=== PATIENT | male | born 1980 | race Caucasian/White ===

== ENCOUNTER 2021-02-12 22:35 | Emergency (ER) | payer SELFPAY ==
[~2021-02-12] VITALS: Ht 187.9 cm; Wt 104.3 kg
[2021-02-12] MEDS ORDERED: LIDOCAINE 1% INJ 20 ML 20 ML VIAL INJ ONE (22:45)
[2021-02-12] MEDS ORDERED: TETANUS,DIPTH,PERTUSS P/F (BOOSTRIX) 0.5 ML VIAL IM ONE (22:45)
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
--- NOTE | 2021-02-12 23:57 | Diagnostic Imaging Report ---
PROCEDURE: CT head and maxillofacial without contrast. TECHNIQUE: Multiple contiguous axial images were obtained through the head and facial bones without the use of intravenous contrast. Auto Exposure Controls were utilized during the CT exam to meet ALARA standards for radiation dose reduction. INDICATION: Trauma. COMPARISON: None CT HEAD: There is abnormal thickened hyperdense appearance to the falx. This is asymmetric and is concerning for small amount of subdural hemorrhage along the falx. No other intra or extra-axial intracranial hemorrhage is seen. There is no significant mass effect or midline shift. Ventricles and cortical sulci are normal in size and contour. There is no large area of loss of normal boucher-white matter junction differentiation to suggest acute territorial infarct. Bony calvarium is intact. CT FACIAL BONES: Multiple acute facial bone fractures are identified. There is acute fracture of the nasal septum. As a result, there is moderate bowing of the nasal septum. There are also acute fractures of the bilateral nasal bones, left worse than right. Additionally, there is a left orbital floor fracture. There is herniation of orbital fat. Inferior rectus muscle, however, appears to be in appropriate position. Evaluation of the remainder of the paranasal sinuses demonstrates no additional fractures. No abnormal air-fluid levels are seen. There is no acute fracture or dislocation of the mandible. There is no fracture of the zygomatic arch on either side. Right orbit is intact. Medial and lateral pterygoid plates are intact as well. Globes are symmetric. There is asymmetric periorbital soft tissue swelling on the left. Soft tissue emphysema with laceration is also noted over the nose. No unexpected radiopaque foreign bodies are seen. IMPRESSION: 1. Small acute subdural hematoma tracking along the falx, midline. No significant mass effect or midline shift. 2. No acute infarct. 3. Acute fracture of the inferior floor of the left orbit. Again, there is herniation of the orbital fat. Correlation with entrapment is recommended. 4. Fractures of the nasal septum and bilateral nasal bones. Results were called to the Emergency Room doctor by Dr. Richter at 2330 on 02/12/2021. Dictated by: Dictated on workstation # [id number]
[2021-02-13 00:09] LABS: BASOPHILS # (AUTO) 0.1 10^3/uL (0.0-0.1); BASOPHILS % (AUTO) 1 % (0-10); EOSINOPHILS # (AUTO) 0.5 10^3/uL (0.0-0.3); EOSINOPHILS % (AUTO) 7 % (0-10); HEMATOCRIT 40 % (40-54); HEMOGLOBIN 14.2 g/dL (13.3-17.7); LYMPHOCYTES # (AUTO) 1.8 X 10^3 (1.0-4.0); LYMPHOCYTES % (AUTO) 26 % (12-44); MEAN CORPUSCULAR HEMOGLOBIN 32 pg (25-34); MEAN CORPUSCULAR HGB CONC 35 g/dL (32-36); MEAN CORPUSCULAR VOLUME 92 fL (80-99); MEAN PLATELET VOLUME 8.7 fL (9.0-12.2); MONOCYTES # (AUTO) 0.5 X 10^3 (0.0-1.0); MONOCYTES % (AUTO) 7 % (0-12); NEUTROPHILS # (AUTO) 4.1 X 10^3 (1.8-7.8); NEUTROPHILS % (AUTO) 59 % (42-75); PLATELET COUNT 288 10^3/uL (130-400)
[2021-02-13 00:22] LABS: BILIRUBIN,TOTAL 0.2 MG/DL (0.1-1.0); CALCIUM 8.9 MG/DL (8.5-10.1); CREATININE SERUM 1.03 MG/DL (0.60-1.30); POTASSIUM 3.4 MMOL/L (3.6-5.0)
[2021-02-13 00:23] LABS: ALBUMIN 4.5 GM/DL (3.2-4.5); TOTAL PROTEIN 6.8 GM/DL (6.4-8.2)
[2021-02-13 02:13] VITALS: BP 142/72
== END 2021-02-13 02:20 | disposition short-term general hospital (02) ==
LOC: ER FS 22:39
DX: S02.32XA Fracture of orbital floor, left side, initial encounter for closed fracture (principal); S02.2XXA Fracture of nasal bones, initial encounter for closed fracture; F10.129 Alcohol abuse with intoxication, unspecified; Z23 Encounter for immunization; Y04.8XXA Assault by other bodily force, initial encounter
CPT/HCPCS: 36415; 70450; 70486; 80053; 85025; 99291; G0480; 80320; 90715

== ENCOUNTER 2022-02-19 13:26 | Emergency (ER) | payer SELFPAY ==
[~2022-02-19] VITALS: Ht 190 cm; Wt 86.0 kg
[2022-02-19] MEDS ORDERED: LORazepam 0.5 MG (ATIVAN) TABLET PO STA (13:41)
[2022-02-19] MEDS ORDERED: OLANZapine 5 MG ODT (ZyPREXA ZYDIS) PO ONE (13:45)
[2022-02-19 13:53] LABS: BASOPHILS # (AUTO) 0.1 10^3/uL (0.0-0.1); BASOPHILS % (AUTO) 1 % (0-10); EOSINOPHILS # (AUTO) 0.2 10^3/uL (0.0-0.3); EOSINOPHILS % (AUTO) 1 % (0-10); HEMATOCRIT 38 % (40-54); HEMOGLOBIN 13.7 g/dL (13.3-17.7); LYMPHOCYTES # (AUTO) 1.8 10^3/uL (1.0-4.0); LYMPHOCYTES % (AUTO) 17 % (12-44); MEAN CORPUSCULAR HEMOGLOBIN 33 pg (25-34); MEAN CORPUSCULAR HGB CONC 36 g/dL (32-36); MEAN CORPUSCULAR VOLUME 93 fL (80-99); MEAN PLATELET VOLUME 9.2 fL (9.0-12.2); MONOCYTES # (AUTO) 1.4 10^3/uL (0.0-1.0); MONOCYTES % (AUTO) 14 % (0-12); NEUTROPHILS # (AUTO) 7.1 10^3/uL (1.8-7.8); NEUTROPHILS % (AUTO) 67 % (42-75); PLATELET COUNT 267 10^3/uL (130-400); WHITE BLOOD COUNT 10.5 10^3/uL (4.3-11.0)
[2022-02-19 13:56] LABS: BILIRUBIN,URINE NEGATIVE (NEGATIVE); CLARITY,URINE CLEAR; COLOR,URINE YELLOW; GLUCOSE, URINE (UA) NEGATIVE (NEGATIVE); KETONES,URINE 1+ (NEGATIVE); LEUKOCYTE ESTERASE ,URINE NEGATIVE (NEGATIVE); NITRITE,URINE NEGATIVE (NEGATIVE); PH,URINE 5.5 (5-9); PROTEIN,URINE NEGATIVE (NEGATIVE)
[2022-02-19 14:02] LABS: BACTERIA,URINE TRACE /HPF; HYALINE CASTS, URINE 0-2 /LPF; WBC,URINE RARE /HPF
--- NOTE | 2022-02-19 14:04 | ED Psychosocial ---
General Chief Complaint: Psych/Social Disorder Stated Complaint: PSYCH EVAL Source: patient Exam Limitations: no limitations History of Present Illness Date Seen by Provider: Feb 19, 2022 Time Seen by Provider: 13:28 Initial Comments 42-year-old male with past medical history of bipolar disorder and methamphetamine use disorder coming in for a psychiatric evaluation. He states he was starting a job today, was not acting right, got drug tested and he believes he could screen positive for marijuana and meth. 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 He prefers to smoke it or snort it. He states he is on the verge of being homeless, will need to live in his car or a tent. He says he is not currently suicidal, but he does not know what he would do if things get any worse. He says in the past he has taken pills to attempt suicide. Denies any pain anywhere or concerns physically. He is on bupropion and buspirone, and he states he does not feel like they are working. Allergies and Home Medications Allergies Coded Allergies: No Known Drug Allergies (Unverified , 02/12/21) Patient Home Medication List Home Medication List Reviewed: Yes Review of Systems Constitutional: No fever EENTM: no symptoms reported Respiratory: no symptoms reported Cardiovascular: no symptoms reported Gastrointestinal: no symptoms reported Genitourinary: no symptoms reported Musculoskeletal: no symptoms reported Skin: no symptoms reported Psychiatric/Neurological: See HPI All Other Systems Reviewed Negative Unless Noted: Yes Past Hdqlcnt-Wgfjmo-Kugurx Hx Patient Social History Tobacco Use?: Yes Tobacco type used: Cigarettes Use of E-Cig and/or Vaping dev: No Substance use?: Yes Substance type: Methamphetamine, Marijuana Alcohol Use?: Yes Alcohol type: Beer Past Medical History Surgeries: Yes (facial reconstruction) Physical Exam Vital Signs - First Documented 02/19/22 13:59 Temp 35.9 Pulse 101 Resp 20 B/P (MAP) 112/73 (86) Pulse Ox 100 O2 Delivery Room Air Capillary Refill : Height, Weight, BMI Height: '" Weight: lbs. oz. kg; 29.00 BMI Method: General Appearance: WD/WN, other (Fidgety) HEENT: PERRL/EOMI, normal ENT inspection, pharynx normal Neck: non-tender, full range of motion, supple, normal inspection Respiratory: chest non-tender, lungs clear, normal breath sounds, no respiratory distress, no accessory muscle use Cardiovascular: regular rate, rhythm, no edema, no murmur Gastrointestinal: normal bowel sounds, non tender, soft; No distended, No guarding, No rebound Extremities: normal range of motion, non-tender, normal inspection, no pedal edema, no calf tenderness, normal capillary refill Neurologic/Psychiatric: no motor/sensory deficits, alert, normal mood/affect, oriented x 3, other (Denies any suicidal or homicidal ideation at this time) Appearance/Memory: appropriate appearance, appropriate insight Behavior/Eye Contact: cooperative, good eye contact, other (Somewhat pressured speech) Thoughts/Hallucinations: normal thought pattern, no apparent hallucination Skin: normal color, warm/dry Lymphatic: no adenopathy Procedures/Interventions Suture Size: 4-0 Progress/Results/Core Measures Results/Orders Lab Results Laboratory Tests Test 02/19/22 13:30 02/19/22 13:50 Range/Units Urine Color YELLOW Urine Clarity CLEAR Urine pH 5.5 5-9 Urine Specific Forest >=1.030 1.016-1.022 Urine Protein NEGATIVE NEGATIVE Urine Glucose (UA) NEGATIVE NEGATIVE Urine Ketones 1+ H NEGATIVE Urine Nitrite NEGATIVE NEGATIVE Urine Bilirubin NEGATIVE NEGATIVE Urine Urobilinogen 0.2 < = 1.0 MG/DL Urine Leukocyte Esterase NEGATIVE NEGATIVE Urine RBC (Auto) NEGATIVE NEGATIVE Urine RBC NONE /HPF Urine WBC RARE /HPF Urine Squamous Epithelial Cells NONE /HPF Urine Crystals NONE /LPF Urine Bacteria TRACE /HPF Urine Casts PRESENT /LPF Urine Hyaline Casts 0-2 H /LPF Urine Mucus SMALL H /LPF Urine Culture Indicated NO Urine Opiates Screen NEGATIVE NEGATIVE Urine Oxycodone Screen NEGATIVE NEGATIVE Urine Methadone Screen NEGATIVE NEGATIVE Urine Propoxyphene Screen NEGATIVE NEGATIVE Urine Barbiturates Screen NEGATIVE NEGATIVE Ur Tricyclic Antidepressants Screen NEGATIVE NEGATIVE Urine Phencyclidine Screen NEGATIVE NEGATIVE Urine Amphetamines Screen POSITIVE H NEGATIVE Urine Methamphetamines Screen POSITIVE H NEGATIVE Urine Benzodiazepines Screen NEGATIVE NEGATIVE Urine Cocaine Screen NEGATIVE NEGATIVE Urine Cannabinoids Screen POSITIVE H NEGATIVE White Blood Count 10.5 4.3-11.0 10^3/uL Red Blood Count 4.11 L 4.30-5.52 10^6/uL Hemoglobin 13.7 13.3-17.7 g/dL Hematocrit 38 L 40-54 % Mean Corpuscular Volume 93 80-99 fL Mean Corpuscular Hemoglobin 33 25-34 pg Mean Corpuscular Hemoglobin Concent 36 32-36 g/dL Red Cell Distribution Width 12.8 10.0-14.5 % Platelet Count 267 130-400 10^3/uL Mean Platelet Volume 9.2 9.0-12.2 fL Immature Granulocyte % (Auto) 0 % Neutrophils (%) (Auto) 67 42-75 % Lymphocytes (%) (Auto) 17 12-44 % Monocytes (%) (Auto) 14 H 0-12 % Eosinophils (%) (Auto) 1 0-10 % Basophils (%) (Auto) 1 0-10 % Neutrophils # (Auto) 7.1 1.8-7.8 10^3/uL Lymphocytes # (Auto) 1.8 1.0-4.0 10^3/uL Monocytes # (Auto) 1.4 H 0.0-1.0 10^3/uL Eosinophils # (Auto) 0.2 0.0-0.3 10^3/uL Basophils # (Auto) 0.1 0.0-0.1 10^3/uL Immature Granulocyte # (Auto) 0.0 0.0-0.1 10^3/uL Sodium Level 141 135-145 MMOL/L Potassium Level 4.2 3.6-5.0 MMOL/L Chloride Level 106 98-107 MMOL/L Carbon Dioxide Level 24 21-32 MMOL/L Anion Gap 11 5-14 MMOL/L Blood Urea Nitrogen 26 H 7-18 MG/DL Creatinine 1.31 H 0.60-1.30 MG/DL Estimat Glomerular Filtration Rate 69 BUN/Creatinine Ratio 20 Glucose Level 87 70-105 MG/DL Calcium Level 9.4 8.5-10.1 MG/DL Corrected Calcium 8.5-10.1 MG/DL Total Bilirubin 0.6 0.1-1.0 MG/DL Aspartate Amino Transf (AST/SGOT) 27 5-34 U/L Alanine Aminotransferase (ALT/SGPT) 27 0-55 U/L Alkaline Phosphatase 72 40-136 U/L Total Protein 6.9 6.4-8.2 GM/DL Albumin 4.6 H 3.2-4.5 GM/DL Salicylates Level < 0.3 L 5.0-20.0 MG/DL Acetaminophen Level < 10 L 10-30 UG/ML Serum Alcohol < 10 <10 MG/DL My Orders Orders - MARY JANE WAITE MD Ua Culture If Indicated (02/19/22 13:33) Cbc With Automated Diff (02/19/22 13:33) Comprehensive Metabolic Panel (02/19/22 13:33) Alcohol (02/19/22 13:33) Drug Screen Stat (Urine) (02/19/22 13:33) Acetaminophen (02/19/22 13:33) Salicylate (02/19/22 13:33) Ekg Tracing (02/19/22 13:33) Ed Iv/Invasive Line Start (02/19/22 13:33) Monitor-Rhythm Ecg Trace Only (02/19/22 13:33) Ed Iv/Invasive Line Start (02/19/22 13:33) Olanzapine Orally Dissolve Tab (Zyprexa (02/19/22 13:45) Lorazepam Tablet (Ativan Tablet) (02/19/22 13:41) Covid 19 Inhouse Test (02/19/22 13:42) Medications Given in ED Current Medications Medications Dose Ordered Sig/Tu Route Start Time Stop Time Status Last Admin Dose Admin Olanzapine 5 mg ONCE ONCE PO 02/19/22 13:45 02/19/22 13:46 DC 02/19/22 13:49 5 MG Vital Signs/I&O 02/19/22 13:59 Temp 35.9 Pulse 101 Resp 20 B/P (MAP) 112/73 (86) Pulse Ox 100 O2 Delivery Room Air Progress Progress Note : Progress Note 42-year-old male with above history coming in for mental health evaluation. AB Cs were intact and vitals were stable on presentation. He did recently use methamphetamines, and the most recent would have been over 30 hours prior to arrival as a conservative estimate. He has no physical complaints at this time. Basic screening labs were obtained from a psychiatric perspective. From an ear perspective, he is deemed appropriate for psychiatric evaluation and has been medically cleared. Update 16:00-patient has been screened by [facility], and the patient was not a very active participant in his screening. Did not answer a lot of questions. The screener did not feel like they could ethically make recommendations at this time. They will try to rescreen later or refer on to [facility] if he gets into the night. Possible he is coming off of the meth, and is finally sleeping. Update 19:40- Patient has been sleeping. Woke him up to talk, and he no longer seems fidgety or intoxicated in any way. He states he has a place to sleep tonight and he will reevaluate in the morning if he needs psychiatric care. He continues to being homicidal or suicidal. I believe he is stable for discharge with outpatient follow-up. He was sent home with strict return precautions Initial ECG Impression Date: Feb 19, 2022 Initial ECG Impression Time: 13:46 Initial ECG Rate: 88 Initial ECG Rhythm: Normal Sinus Comment Narrow QRS, left axis deviation, no significant ST changes or T wave abnormality, QTC 408 Departure Impression Primary Impression: Methamphetamine use Disposition: 01 HOME, SELF-CARE Condition: Stable Departure-Patient Inst. Decision time for Depature: 19:38 Referrals: NO,LOCAL PHYSICIAN (PCP/Family) Primary Care Physician Patient Instructions: ALCOHOL AND SUBSTANCE ABUSE, OUTPT MENTAL HEALTH SERVICES Add. Discharge Instructions: If you feel homicidal or suicidal, please come back to the ER. Otherwise you do have an appointment with your counselor already tomorrow. Work/School Note: Work Release Form Date Seen in the Emergency Department: Feb 19, 2022 Return to Work: Feb 21, 2022 Restrictions: No Restrictions MARY JANE WAITE MD Feb 19, 2022 14:04
[2022-02-19 14:09] LABS: AMPHETAMINE SCREEN, URINE POSITIVE (NEGATIVE); BARBITURATE SCREEN URINE NEGATIVE (NEGATIVE); BENZODIAZEPINES SCREEN URINE NEGATIVE (NEGATIVE); CANNABINOID SCREEN, URINE POSITIVE (NEGATIVE); COCAINE SCREEN URINE NEGATIVE (NEGATIVE); METHADONE STAT NEGATIVE (NEGATIVE); OPIATE SCREEN URINE NEGATIVE (NEGATIVE); OXYCODONE STAT NEGATIVE (NEGATIVE); PROPOXYPHENE STAT NEGATIVE (NEGATIVE); TRICYCLIC ANTIDEPRESSANTS SCRE NEGATIVE (NEGATIVE)
[2022-02-19 14:22] LABS: ALANINE AMINOTRANSFERASE 27 U/L (0-55); ALKALINE PHOSPHATASE 72 U/L (40-136); BILIRUBIN,TOTAL 0.6 MG/DL (0.1-1.0); BUN/CREATININE RATIO 20; CALCIUM 9.4 MG/DL (8.5-10.1); CARBON DIOXIDE 24 MMOL/L (21-32); CHLORIDE 106 MMOL/L (98-107); CREATININE SERUM 1.31 MG/DL (0.60-1.30); GFR ESTIMATED 69; GLUCOSE 87 MG/DL (70-105); POTASSIUM 4.2 MMOL/L (3.6-5.0); SODIUM 141 MMOL/L (135-145)
[2022-02-19 14:23] LABS: ACETAMINOPHEN < 10 UG/ML (10-30); ALBUMIN 4.6 GM/DL (3.2-4.5); SALICYLATE < 0.3 MG/DL (5.0-20.0); TOTAL PROTEIN 6.9 GM/DL (6.4-8.2)
[2022-02-19 19:45] VITALS: BP 118/82
== END 2022-02-19 19:41 | disposition home or self-care (01) ==
LOC: EDUNIT# 13:26 → ER FS 13:28
DX: F15.90 Other stimulant use, unspecified, uncomplicated (principal); F31.9 Bipolar disorder, unspecified; F17.210 Nicotine dependence, cigarettes, uncomplicated; Z79.899 Other long term (current) drug therapy
CPT/HCPCS: 36415; 80053; 80306; 81000; 85025; 93005; 99284; G0480 ×3; 80320; 80329

== ENCOUNTER 2022-02-19 21:00 | Emergency (ER) | payer SELFPAY ==
[~2022-02-19] VITALS: Ht 187.9 cm; Wt 86.1 kg
--- NOTE | 2022-02-19 21:11 | ED Psychosocial ---
General Stated Complaint: SUICIDAL Source: patient Exam Limitations: no limitations (MARY JANE WAITE MD) History of Present Illness Date Seen by Provider: Feb 19, 2022 Time Seen by Provider: 21:00 Initial Comments 42-year-old male with past medical history of polysubstance use disorder and bipolar disorder coming in after he was just discharged from the ER. The patient came in earlier today for mental health screen because he was using meth, was about to be homeless, and wanted evaluated. He was evaluated by [facility], and did not want to communicate much to them. He mostly wanted to sleep. Upon waking up, he stating once again he was not suicidal or homicidal. He stated he had a safe place to go tonight so he was discharged. He had an appointment in the morning with his counselor. Apparently while in the waiting room in the ER, he was unable to get a ride, and no longer had a safe place to go. At that time he was stating he was suicidal, he called the hotline and was referred back to the ER. He states at this point he would "figure it out, do what ever he needed to do to kill himself". He states he would overdose on pills, Scooby into traffic, or do what ever it takes. He is denying any physical complaints at this time. (MARY JANE WAITE MD) Allergies and Home Medications Allergies Coded Allergies: No Known Drug Allergies (Unverified , 02/12/21) Patient Home Medication List Home Medication List Reviewed: Yes (MARY JANE WAITE MD) Review of Systems Constitutional: No fever EENTM: no symptoms reported Respiratory: no symptoms reported Cardiovascular: no symptoms reported Gastrointestinal: no symptoms reported Genitourinary: no symptoms reported Musculoskeletal: no symptoms reported Skin: no symptoms reported Psychiatric/Neurological: See HPI (MARY JANE WAITE MD) All Other Systems Reviewed Negative Unless Noted: Yes (MARY JANE WAITE MD) Past Flqtojm-Wazncn-Lpmyee Hx Patient Social History Substance use?: Yes (MARY JANE WAITE MD) Past Medical History Surgeries: Yes (facial reconstruction) (MARY JANE WAITE MD) Physical Exam Vital Signs - First Documented 02/19/22 21:02 Temp 37.0 Pulse 81 Resp 18 B/P (MAP) 143/83 (103) Pulse Ox 100 O2 Delivery Room Air (RUBINA BRAY DO) Capillary Refill : (MARY JANE WAITE MD) Height, Weight, BMI Height: '" Weight: lbs. oz. kg; 23.00 BMI Method: General Appearance: WD/WN, no apparent distress, other (Slightly agitated) HEENT: PERRL/EOMI, normal ENT inspection, pharynx normal Neck: non-tender, full range of motion, supple, normal inspection Respiratory: chest non-tender, lungs clear, normal breath sounds, no respiratory distress, no accessory muscle use Cardiovascular: regular rate, rhythm, no edema, no murmur Gastrointestinal: normal bowel sounds, non tender, soft; No distended, No guarding, No rebound Extremities: normal range of motion, non-tender, normal inspection, no pedal edema, no calf tenderness, normal capillary refill Neurologic/Psychiatric: examination scorer II-XII nml as tested, no motor/sensory deficits, alert, normal mood/affect, oriented x 3 Appearance/Memory: appropriate appearance Behavior/Eye Contact: cooperative, good eye contact, other (Agitated) Thoughts/Hallucinations: no apparent hallucination, other (Suicidal) Skin: normal color, warm/dry Lymphatic: no adenopathy (MARY JANE WAITE MD) Procedures/Interventions Suture Size: 4-0 (MARY JANE WAITE MD) Progress/Results/Core Measures Results/Orders Lab Results Laboratory Tests Test 02/19/22 21:12 Range/Units SARS-CoV-2 RNA (RT-PCR) Not Detected Not Detecte (RUBINA BRAY DO) Progress Progress Note : Progress Note 42-year-old male presenting for reevaluation now that he is feeling suicidal since he will be soon homeless. ABCs were intact and vitals were stable on presentation. He has no physical complaints and is cleared for psychiatric evaluation. Of note, the patient had a screening COVID test performed since he likely will be inpatient. Afterwards he stated he would "kill all of you, and kill you.". He was talking to the nurse. Police were called. Update 02/22/22 at 09:57am- patient has been calm since the his original outburst more than 60 hours ago. He has not required any PRN medication and has been cooperative with no aggression. I suspect he has completed his withdrawal from the methamphetamine. He does still feel suicidal at this time. He feels hopeless given his life situation and now homelessness. Update 02/22/22 at 13:47- patient stating he knows he has outpatient mental health resources available. He states he has an appointment with his mental health provider tomorrow in [place] that he would like to go to. He states his suicidality is more passive as this time and he does not have a plan to follow through with it. He is motivated to get better. A safety plan was sent and signed by him. I believe he is stable for discharge with outpatient follow up. He was sent home with strict return precautions. (MARY JANE WAITE MD) Progress Note : Progress Note [id number] 02/21/22 patient reports that he still feels suicidal. Both staff and behavioral health have called approximately 15-20 mental health facilities and all declined at this time. Behavioral health is aware and will continue to work on a plan. Patient has remained stable throughout his stay. (JAYRO JIN DO) Departure Communication (Admissions) 0653: Patient remained calm and cooperative for the duration of his stay. Awaiting placement. (RUBINA BRAY DO) Impression Primary Impression: Suicidal ideations Additional Impression: Methamphetamine use Disposition: 01 HOME, SELF-CARE Condition: Stable Departure-Patient Inst. Referrals: [facility],LOCAL PHYSICIAN (PCP) Primary Care Physician Patient Instructions: Depression, Adult ED, OUTPT MENTAL HEALTH SERVICES Add. Discharge Instructions: Please follow-up with your counselor tomorrow. If you have any changes or new concerns please come back to the ER. Work/School Note: Work Release Form Date Seen in the Emergency Department: Feb 19, 2022 Return to Work: Feb 23, 2022 Restrictions: No Restrictions MARY JANE WAITE MD Feb 19, 2022 21:11 RUBINA BRAY DO Feb 21, 2022 06:53 JAYRO JIN DO Feb 21, 2022 18:38
[2022-02-19] MEDS ORDERED: OLANZapine 5 MG ODT (ZyPREXA ZYDIS) PO PRN (21:45)
[2022-02-22 10:40] LABS: BILIRUBIN,URINE NEGATIVE (NEGATIVE); CLARITY,URINE CLEAR; COLOR,URINE YELLOW; GLUCOSE, URINE (UA) NEGATIVE (NEGATIVE); KETONES,URINE TRACE (NEGATIVE); LEUKOCYTE ESTERASE ,URINE NEGATIVE (NEGATIVE); NITRITE,URINE NEGATIVE (NEGATIVE); PROTEIN,URINE NEGATIVE (NEGATIVE)
[2022-02-22 10:50] LABS: BASOPHILS % (AUTO) 1 % (0-10); EOSINOPHILS # (AUTO) 0.3 10^3/uL (0.0-0.3); EOSINOPHILS % (AUTO) 5 % (0-10); HEMATOCRIT 44 % (40-54); HEMOGLOBIN 15.3 g/dL (13.3-17.7); LYMPHOCYTES # (AUTO) 1.5 10^3/uL (1.0-4.0); LYMPHOCYTES % (AUTO) 25 % (12-44); MEAN CORPUSCULAR HEMOGLOBIN 32 pg (25-34); MEAN CORPUSCULAR HGB CONC 35 g/dL (32-36); MEAN CORPUSCULAR VOLUME 93 fL (80-99); MEAN PLATELET VOLUME 9.3 fL (9.0-12.2); MONOCYTES # (AUTO) 0.5 10^3/uL (0.0-1.0); MONOCYTES % (AUTO) 9 % (0-12); NEUTROPHILS # (AUTO) 3.7 10^3/uL (1.8-7.8); NEUTROPHILS % (AUTO) 61 % (42-75); PLATELET COUNT 252 10^3/uL (130-400); WHITE BLOOD COUNT 6.1 10^3/uL (4.3-11.0)
[2022-02-22 10:52] LABS: BACTERIA,URINE NEGATIVE /HPF; SQUAMOUS EPITHELIAL CELL,UR RARE /HPF; WBC,URINE RARE /HPF
[2022-02-22 10:54] LABS: ALBUMIN 4.2 GM/DL (3.2-4.5); BILIRUBIN,TOTAL 0.3 MG/DL (0.1-1.0); CALCIUM 8.8 MG/DL (8.5-10.1); CREATININE SERUM 0.97 MG/DL (0.60-1.30); POTASSIUM 4.5 MMOL/L (3.6-5.0); TOTAL PROTEIN 6.5 GM/DL (6.4-8.2)
[2022-02-22 10:56] LABS: AMPHETAMINE SCREEN, URINE NEGATIVE (NEGATIVE); BARBITURATE SCREEN URINE NEGATIVE (NEGATIVE); BENZODIAZEPINES SCREEN URINE NEGATIVE (NEGATIVE); CANNABINOID SCREEN, URINE POSITIVE (NEGATIVE); COCAINE SCREEN URINE NEGATIVE (NEGATIVE); METHADONE STAT NEGATIVE (NEGATIVE); OPIATE SCREEN URINE NEGATIVE (NEGATIVE); OXYCODONE STAT NEGATIVE (NEGATIVE); PROPOXYPHENE STAT NEGATIVE (NEGATIVE); TRICYCLIC ANTIDEPRESSANTS SCRE NEGATIVE (NEGATIVE)
[2022-02-22 14:50] VITALS: BP 137/67
== END 2022-02-22 14:50 | disposition home or self-care (01) ==
LOC: EDUNIT# 21:00 → ER FS 21:01
DX: R45.851 Suicidal ideations (principal); F15.90 Other stimulant use, unspecified, uncomplicated; Z20.822 Contact with and (suspected) exposure to COVID-19; Z28.310 Unvaccinated for COVID-19
CPT/HCPCS: 36415; 80053; 80306; 81000; 85025; 87636